=== PATIENT | male | born 1975 | race Caucasian/White ===

== ENCOUNTER 2016-12-10 19:29 | Emergency (ER) | payer BC ==
[2016-12-10 19:37] VITALS: BP 120/64; PULSE 103; RESP 18; TEMP 97.8; O2SAT 99
[2016-12-10] MEDS ORDERED: Albuterol-Ipratrop 3 mg / 0.5 (3 ml) UD INH STA ×3 (20:20→20:21)
[2016-12-10] MEDS ORDERED: Albuterol-Ipratrop 3 mg / 0.5 (3 ml) UD ONE (20:21)
--- NOTE | 2016-12-10 20:37 | ED PDOC ---
HPI: SOB/CHF/COPD Time Seen by Provider: 12/10/16 19:58 Chief Complaint (Nursing): Shortness Of Breath Chief Complaint (Provider): Shortness Of Breath History Per: Patient History/Exam Limitations: no limitations Onset/Duration Of Symptoms: Days (x3) Current Symptoms Are (Timing): Still Present Additional Complaint(s): Frank Gonzalez is a 41 year old male with a history of asthma that presents to the ED with a chief complaint of difficulty breathing and wheezing that he has been experiencing for the past three days. Patient reports that he has been using his nebulizer, which he used five times just today, but reports that is is not helping him relieve his symptoms. He states that he has chest pain only when coughing, but denies any fever, vomiting, diarrhea, dizziness, syncope, or leg swelling. Of Note: No history of ICU admissions, no history of intubations. Past Medical History Reviewed: Historical Data, Nursing Documentation, Vital Signs Vital Signs: Last Vital Signs Temp 97.8 F 12/10/16 19:34 Pulse 103 H 12/10/16 19:34 Resp 18 12/10/16 19:34 BP 120/64 12/10/16 19:34 Pulse Ox 99 12/10/16 21:56 - Medical History PMH: Asthma - Family History Family History: States: Unknown Family Hx - Home Medications Home Medications: Ambulatory Orders Medication Instructions Recorded Albuterol HFA [Ventolin HFA 90 2 puff IH Q4 PRN #1 inh 12/10/16 mcg/actuation (8 g)] Fluticasone/Salmeterol 250/50 1 puff IH Q12 #1 inh 12/10/16 [Advair Diskus] Prednisone 50 mg PO DAILY #5 tablet 12/10/16 - Allergies Allergies/Adverse Reactions: Allergies Allergy/AdvReac Type Severity Reaction Status Date / Time shellfish derived Allergy ANAPHYLAXIS Verified 12/10/16 19:34 Review of Systems ROS Statement: Except As Marked, All Systems Reviewed And Found Negative Constitutional: Negative for: Fever Cardiovascular: Positive for: Chest Pain (Only when coughing). Negative for: Edema (denies leg swelling) Respiratory: Positive for: Cough (Dry), Shortness of Breath, Wheezing (Patient has difficulty breathing) Gastrointestinal: Negative for: Vomiting, Diarrhea Neurological: Negative for: Dizziness Physical Exam - Reviewed Nursing Documentation Reviewed: Yes Vital Signs Reviewed: Yes - Physical Exam Appears: Positive for: Non-toxic, No Acute Distress (Patient appears comfortable ) Head Exam: Positive for: ATRAUMATIC, NORMOCEPHALIC Skin: Positive for: Normal Color, Warm Eye Exam: Positive for: Normal appearance, EOMI Cardiovascular/Chest: Positive for: Regular Rate, Rhythm. Negative for: Murmur Respiratory: Positive for: Wheezing (Bilateral and diffuse). Negative for: Normal Breath Sounds Gastrointestinal/Abdominal: Positive for: Normal Exam, Soft. Negative for: Tenderness Extremity: Positive for: Normal ROM. Negative for: Pedal Edema Neurologic/Psych: Positive for: Alert, Oriented. Negative for: Motor/Sensory Deficits - ECG O2 Sat by Pulse Oximetry: 99 (RA) Pulse Ox Interpretation: Normal - Radiology X-Ray: Interpreted by Me, Viewed By Me X-Ray Interpretation: No Acute Disease Nebulizer Treatments/Peak Flow - Duonebs Number of Bronchodilator Doses given?: 3 - Pre/Post Peak Flow Pre Treatment Peak Flow: 250 Post treatment Peak Flow: 350 - Steroid Treatment Steroid: IV - Clinical Response Clinical Response: Improved Medical Decision Making Medical Decision Making: Impression: Asthma Exacerbation Plan: * Chest X-Ray * EKG * Duoneb 9 mL INH * Methylprednisolone 125 mg IV * Reevaluation EKG showed sinus tachycardia with rate of [address] changes, normal QRS. 2140 Pt is significantly improved. No SOB. No wheezing. Ambulated without changes. Scribe Attestation: Documented by Adamaris Goyal, acting as a scribe for Royer Figueroa MD. Provider Scribe Attestation: All medical record entries made by the Scribe were at my direction and personally dictated by me. I have reviewed the chart and agree that the record accurately reflects my personal performance of the history, physical exam, medical decision making, and the department course for this patient. I have also personally directed, reviewed, and agree with the discharge instructions and disposition. Disposition - Clinical Impression Clinical Impression: Asthma exacerbation - Patient ED Disposition Is Patient to be Admitted: No Doctor Will See Patient In The: Office Counseled Patient/Family Regarding: Studies Performed, Diagnosis, Need For Followup - Disposition Referrals: [facility] [Outside] Disposition: Routine/Home Disposition Time: 21:54 Condition: GOOD Additional Instructions: Take your medications as instructed. Follow up with your PCP in 2-3 days. Return for worsening. Prescriptions: Albuterol HFA [Ventolin HFA 90 mcg/actuation (8 g)] 2 puff IH Q4 PRN #1 inh PRN Reason: Wheezing Fluticasone/Salmeterol 250/50 [Advair Diskus] 1 puff IH Q12 #1 inh Prednisone 50 mg PO DAILY #5 tablet Instructions: Asthma (ED)
--- NOTE | 2016-12-11 12:01 | RAD ---
PROCEDURE: CHEST RADIOGRAPH, 1 VIEW HISTORY: sob COMPARISON: None available. FINDINGS: LUNGS: Clear. PLEURA: No pneumothorax or pleural fluid seen. CARDIOVASCULAR: Normal. OSSEOUS STRUCTURES: No significant abnormalities. VISUALIZED UPPER ABDOMEN: Normal. OTHER FINDINGS: None. IMPRESSION: No acute cardiopulmonary disease appreciated.
--- NOTE | 2016-12-12 12:17 | CARD ---
APPROVED REPORT EKG Measurement Heart [id number] <Conclusion> Sinus tachycardia Possible Left atrial enlargement T wave abnormality, consider inferior ischemia Abnormal ECG
== END 2016-12-10 22:12 | disposition home or self-care (01) ==
LOC: H.ER 19:29
DX: J45.909 Unspecified asthma, uncomplicated (principal)
CPT/HCPCS: 71010; 93005; 94150; 94640; 96374; 99283; J2930

== ENCOUNTER 2017-05-23 03:37 | Emergency (ER) | payer BC ==
[2017-05-23 03:53] VITALS: TEMP 97.9
[2017-05-23 05:16] VITALS: RESP 16
--- NOTE | 2017-05-23 06:44 | ED PDOC ---
HPI: Allergic Reaction Time Seen by Provider: 05/23/17 03:45 Chief Complaint (Nursing): Allergic Reaction Chief Complaint (Provider): Allergic Reaction History Per: Patient, EMS History/Exam Limitations: no limitations Onset/Duration Of Symptoms: Mins (20 minutes prior to arrival) Current Symptoms Are (Timing): Better Associated Symptoms: Skin Rash, Swelling (facial), Dyspnea Home/EMS Treatment: Benadryl, Epi-pen, Other (solu-medrol) Additional Complaint(s): Frank Gonzalez is a 41 year old male with a history of allergis to shellfish , who was brought to ER by EMS for evaluation of allergic reaction, onset 20 minutes prior to arrival. Patient states he was eating a beef empanada when he began having difficulty breathing, facial swelling, and a rash. In the field he was given 0.3 ml Epinephrine IM, 125 mg Solu-Medrol, and 50 mg Benadryl. Patient reports feeling much much better with no difficulty breathing or shortness of breath. He denies any chest pain, fever, chills, nausea, vomiting, or diarrhea. Patient s/p uvulectomy and adenoidectomy. He offers no other medical complaints at this time. PMD: none provided Past Medical History Reviewed: Historical Data, Nursing Documentation, Vital Signs Vital Signs: Last Vital Signs Temp 97.9 F 05/23/17 03:48 Pulse 97 H 05/23/17 05:15 Resp 16 05/23/17 05:15 BP 118/73 05/23/17 05:15 Pulse Ox 99 05/23/17 03:48 - Medical History PMH: Asthma - Surgical History Surgical History: Tonsillectomy - Family History Family History: States: Unknown Family Hx - Home Medications Home Medications: Ambulatory Orders Medication Instructions Recorded Albuterol HFA [Ventolin HFA 90 2 puff IH Q4 PRN #1 inh 12/10/16 mcg/actuation (8 g)] Fluticasone/Salmeterol 250/50 1 puff IH Q12 #1 inh 12/10/16 [Advair Diskus] Prednisone 50 mg PO DAILY #5 tablet 12/10/16 - Allergies Allergies/Adverse Reactions: Allergies Allergy/AdvReac Type Severity Reaction Status Date / Time shellfish derived Allergy ANAPHYLAXIS Verified 05/23/17 03:53 Review of Systems ROS Statement: Except As Marked, All Systems Reviewed And Found Negative Constitutional: Negative for: Fever Eyes: Positive for: Other (facial swelling) Cardiovascular: Negative for: Chest Pain Respiratory: Positive for: Shortness of Breath, Other (dyspnea) Gastrointestinal: Negative for: Nausea, Vomiting, Diarrhea Skin: Positive for: Rash Physical Exam - Reviewed Nursing Documentation Reviewed: Yes Vital Signs Reviewed: Yes - Physical Exam Appears: Positive for: Non-toxic, No Acute Distress Head Exam: Positive for: ATRAUMATIC, NORMAL INSPECTION, NORMOCEPHALIC Skin: Positive for: Normal Color, Warm, Dry Eye Exam: Positive for: EOMI, Normal appearance, PERRL ENT: Positive for: Normal ENT Inspection, Other (no uvula) Neck: Positive for: Normal, Painless ROM, Supple Cardiovascular/Chest: Positive for: Regular Rate, Rhythm. Negative for: Murmur Respiratory: Positive for: Normal Breath Sounds. Negative for: Respiratory Distress Gastrointestinal/Abdominal: Positive for: Normal Exam, Soft. Negative for: Tenderness Back: Positive for: Normal Inspection. Negative for: L CVA Tenderness, R CVA Tenderness, Vertebral Tenderness Extremity: Positive for: Normal ROM. Negative for: Pedal Edema, Deformity, Swelling Neurologic/Psych: Positive for: Alert, Oriented - ECG O2 Sat by Pulse Oximetry: 99 (RA) Pulse Ox Interpretation: Normal Disposition - Clinical Impression Clinical Impression: Allergic reaction - Patient ED Disposition Is Patient to be Admitted: Transfer of Care - Disposition Disposition: Transfer of Care Disposition Time: 07:00 Condition: IMPROVED Forms: [email or web address] (Wallisian) Patient Signed Over To: Delicia Pearson Handoff Comments: pending re-eval at 6 hour dimitri for further allergic reaction/ anaphylaxis Medical Decision Making Medical Decision Making: Time: 430 Impression: s/p anaphylaxis Plan: Patient will remain in the ER for 4-6 for observation. 600 Patient resting comfortably, no acute changes 7:00 Patient resting comfortably, no acute changes Patient signed out to Dr. Pearson, pending observation for total of 6 hour period post-epi injection Scribe Attestation: Documented by Ciarra Cai, acting as a scribe for Jaziel Henderson MD Provider Scribe Attestation: All medical record entries made by the Scribe were at my direction and personally dictated by me. I have reviewed the chart and agree that the record accurately reflects my personal performance of the history, physical exam, medical decision making, and the department course for this patient. I have also personally directed, reviewed, and agree with the discharge instructions and disposition.
[2017-05-23] MEDS ORDERED: Sodium Chloride 0.9% 1,000 ML IV STA (06:59)
--- NOTE | 2017-05-23 07:08 | ED PDOC ---
- ECG O2 Sat by Pulse Oximetry: 99 (RA) Pulse Ox Interpretation: Normal Medical Decision Making Medical Decision Making: Time: 07:00 Patient signed out to me by Dr. Henderson, pending observation for total of 6 hour period post-epi injection Time: 09:58 Post 6 hour Observation Patient feels much better. Speaking full sentences. Lungs clear. Pharynx is clear. No drooling. Patient has had Epipen before. Upon provider evaluation patient is medically stable, and requires no further treatment in the ED at this time. Patient will be discharged with Rx for Benadryl, Epipen Auto-injector, Pepcid and Prednisone. Counseling was provided and all questions were answered regarding diagnosis and need for follow up with PMD within 2 days for re-evaluation. There is agreement to discharge plan. Return if symptoms persist or worsen. Scribe Attestation: Documented by Gokul Caban, acting as a scribe for Delicia Pearson MD Provider Scribe Attestation: All medical record entries made by the Scribe were at my direction and personally dictated by me. I have reviewed the chart and agree that the record accurately reflects my personal performance of the history, physical exam, medical decision making, and the department course for this patient. I have also personally directed, reviewed, and agree with the discharge instructions and disposition. Disposition - Clinical Impression Clinical Impression: Allergic reaction - POA Present On Arrival: None - Disposition Referrals: [facility] [Outside] Disposition: Routine/Home Disposition Time: 09:59 Condition: IMPROVED Additional Instructions: FOLLOW-UP WITH PMD WITHIN 2 DAYS FOR REEVALUATION. Prescriptions: DiphenhydrAMINE [Benadryl] 50 mg PO Q6H 3 Days #20 cap Epinephrine HCl [Epipen Auto-Injector] 0.3 mg MR ONCE PRN #1 ml PRN Reason: Anaphylaxis Famotidine [Pepcid] 20 mg PO BID #20 tab Prednisone 50 mg PO DAILY #4 tab Instructions: Food Allergy, Epinephrine Autoinjectors Forms: [employer] (Jamaican)
[2017-05-23 10:25] VITALS: BP 120/78; PULSE 91
[2017-05-26 15:53] VITALS: O2SAT 99
== END 2017-05-23 10:23 | disposition home or self-care (01) ==
LOC: H.ER 03:37
DX: T78.40XA Allergy, unspecified, initial encounter (principal); X58.XXXA Exposure to other specified factors, initial encounter
CPT/HCPCS: 96360; 99285; J7040

== ENCOUNTER 2018-03-09 05:43 | Emergency (ER) | payer BC ==
[2018-03-09 06:09] VITALS: BP 125/86; PULSE 86; RESP 15; TEMP 97.6; O2SAT 98
--- NOTE | 2018-03-09 06:26 | ED PDOC ---
HPI: Skin/Bite Injury Time Seen by Provider: 03/09/18 05:50 Chief Complaint (Nursing): Abnormal Skin Integrity Chief Complaint (Provider): Abscess History Per: Patient History/Exam Limitations: no limitations Onset/Duration Of Symptoms: Days Current Symptoms Are (Timing): Still Present Location Of Injury: Right: Arm (axilla) Quality Of Symptoms: Painful, Swollen Additional History Per: Patient Additional Complaint(s): 42yo male, otherwise well, comes to ER due to an abscess on his right axilla. Patient states he has been applying warm compresses to the area with no relief of symptoms. He also reports redness around the abscess area and states it is painful to touch. Patient otherwise denies any fever, chills, and offers no additional complaints. PMD: Dr. Workman in [place] Past Medical History Reviewed: Historical Data, Nursing Documentation, Vital Signs Vital Signs: Last Vital Signs Temp 97.6 F 03/09/18 06:06 Pulse 86 03/09/18 06:06 Resp 15 03/09/18 06:06 BP 125/86 03/09/18 06:06 Pulse Ox 98 03/09/18 06:06 - Medical History PMH: Asthma - Surgical History Surgical History: Tonsillectomy Other surgeries: ENT study due to sleep apnea - Family History Family History: States: Unknown Family Hx - Social History Current smoker - smoking cessation education provided: No Alcohol: Social Drugs: Denies - Home Medications Home Medications: Ambulatory Orders Medication Instructions Recorded Fluticasone/Salmeterol 250/50 1 puff IH Q12 #1 inh 12/10/16 [Advair Diskus] RX: Albuterol HFA [Ventolin HFA 90 2 puff IH Q4 PRN #1 inh 12/10/16 mcg/actuation (8 g)] RX: Prednisone 50 mg PO DAILY #5 tablet 12/10/16 DiphenhydrAMINE [Benadryl] 50 mg PO Q6H 3 Days #20 cap 05/23/17 Epinephrine HCl [Epipen 0.3 mg MR ONCE PRN #1 ml 05/23/17 Auto-Injector] Famotidine [Pepcid] 20 mg PO BID #20 tab 05/23/17 RX: Prednisone 50 mg PO DAILY #4 tab 05/23/17 Cephalexin [Keflex] 500 mg PO QID #28 capsule 12/26/18 Sulfamethoxazole/Trimethoprim 1 tab PO BID #14 tab 03/09/18 [Bactrim DS 800 mg-160 mg] - Allergies Allergies/Adverse Reactions: Allergies Allergy/AdvReac Type Severity Reaction Status Date / Time shellfish derived Allergy ANAPHYLAXIS Verified 03/09/18 06:09 Review of Systems ROS Statement: Except As Marked, All Systems Reviewed And Found Negative (as per HPI) Constitutional: Negative for: Fever, Chills Skin: Positive for: Other (abscess on right axilla) Physical Exam - Reviewed Nursing Documentation Reviewed: Yes Vital Signs Reviewed: Yes - Physical Exam Appears: Positive for: No Acute Distress Head Exam: Positive for: ATRAUMATIC, NORMAL INSPECTION, NORMOCEPHALIC Skin: Positive for: Warm, Dry Eye Exam: Positive for: Normal appearance Neck: Positive for: Supple Cardiovascular/Chest: Positive for: Regular Rate, Rhythm Respiratory: Positive for: Normal Breath Sounds Pulses-Radial (R): 2+ Extremity: Positive for: Normal ROM, Other (there is an abscess w fluctuance, in right axilla with surrounding cellulitis; tenderness to palpation. no drainage or active bleeding noted.). Negative for: Deformity Neurologic/Psych: Positive for: Alert, Oriented. Negative for: Motor/Sensory Deficits - ECG O2 Sat by Pulse Oximetry: 98 (RA) Pulse Ox Interpretation: Normal Medical Decision Making Medical Decision Making: Impression: Abscess on right axilla Plan: -- Verbal consent obtained for I&D procedure; see procedure note -- IV Vancomycin, IV Unasyn ordered 0700 Patient tolerated I&D procedure well; patient to be discharged home and instructed to follow up in 2 days for wound care. Patient given home wound care instructions as well as prescription for antibiotics. Scribe Attestation: Documented by Candi Noel, acting as a scribe for Christiana Allen MD. Provider Scribe Attestation: All medical record entries made by the Scribe were at my direction and personally dictated by me. I have reviewed the chart and agree that the record accurately reflects my personal performance of the history, physical exam, medical decision making, and the department course for this patient. I have also personally directed, reviewed, and agree with the discharge instructions and disposition. Disposition - Clinical Impression Clinical Impression: Abscess - Patient ED Disposition Is Patient to be Admitted: No Counseled Patient/Family Regarding: Studies Performed, Diagnosis, Need For Followup - Disposition Disposition: Routine/Home Disposition Time: 06:51 Condition: IMPROVED Additional Instructions: follow up in 2 days for packing removal and wound check return to the ED with any worsening or concerning symptoms Prescriptions: Cephalexin [Keflex] 500 mg PO QID #28 capsule Sulfamethoxazole/Trimethoprim [Bactrim DS 800 mg-160 mg] 1 tab PO BID #14 tab Instructions: Abscess Incision and Drainage (DC) Forms: [employer] (Welsh) - Incision & Drainage Of Abscess Anesthesia: With Epi (1 percent) Used During Procedure: Continuous Pulse Oximetry Prep Used: Sterile Water, Betadine Procedure: Incised W/Scalpel Blade#: (15), Drained Pus (copious amount of blood drained), Irrigated Cavity W/Saline, Probed To Break Up Loculations, Packed W/Gauze
[2018-03-09] MEDS ORDERED: Povidone Iodine Oint 10% Foilpak UD ONE (06:37)
[2018-03-09] MEDS ORDERED: Lidocaine 1% w Epi 1:100,000 Inj ONE (06:40)
[2018-03-09] MEDS ORDERED: Lidocaine 1.5%-Epinephrine 1:200,000 5 ML AMP IJ ONE (06:57)
[2018-03-09] MEDS ORDERED: Vancomycin 1 g Inj ONE (07:02)
[2018-03-09] MEDS ORDERED: Lidocaine/Epi 1% 1:100000 20 ML IJ ONE (07:36)
== END 2018-03-09 11:01 | disposition home or self-care (01) ==
LOC: H.ER 05:43
DX: L02.411 Cutaneous abscess of right axilla (principal); J45.909 Unspecified asthma, uncomplicated
CPT/HCPCS: 96374; 96375; 99283; J0295